=== PATIENT | female | born 1955 | race Caucasian/White ===

== ENCOUNTER 2017-04-23 09:58 | Day surgery (SDC) | payer BC ==
[~2017-04-23 09:58] MED LIST: Lactated Ringers 1,000 ML IV SCH; Lidocaine 1% with EPINEPHrine 1:100,000 20 ML MDV ONE; Lidocaine 1%/Sod Bicarbonate in NS 8.4% 1 ML Syringe PRN; Sodium Chloride 0.9% 10 ML Syringe FLUSH PRN
[2017-04-23] MEDS ORDERED: Bupivacaine 0.5%/EPINEPHrine 1:200,000 50 ML MDV ONE (09:59)
--- NOTE | 2017-04-23 10:24 | PCM.PREANE ---
Preanesthetic Assessment - Procedure Proposed Procedure: Laparoscopic Cholecystectomy - Anesthesia/Transfusion/Family Hx Anesthesia History: Prior Anesthesia Without Reaction Family History of Anesthesia Reaction: No Transfusion History: No Prior Transfusion(s) - Review of Systems General: No Symptoms Pulmonary: No Symptoms Cardiovascular: Palpitations (occasional papitations, holter monitor worn a couple months ago and " didnt find anything"), Other (HTN controlled with medications ) Gastrointestinal: No symptoms Neurological: No Symptoms Other: Reports: None, Diabetes (prediabetic ) - Physical Assessment NPO Status Date: 04/23/17 NPO Status Time: 02:00 Height: 1.57 m Weight: 73.255 kg ASA Class: 2 Mental Status: Alert & Oriented x3 Airway Class: Mallampati = 2 Dentition: Reports: Broken Tooth/Teeth (chipped front bottom 2 ) Thyro-Mental Finger Breadths: 3 Mouth Opening Finger Breadths: 3 ROM/Head Extension: Full Lungs: Clear to auscultation, Normal respiratory effort Cardiovascular: Regular Rate, Regular Rhythm - Allergies Allergies/Adverse Reactions: Allergies Allergy/AdvReac Type Severity Reaction Status Date / Time Xbmzryp-[id number]-Kbp Reductase Allergy Cannot Verified 04/22/17 16:44 Inhibitor Remember vancomycin Allergy Cannot Verified 04/22/17 16:44 Remember - Blood Blood Available: No Product(s) Available: None - Anesthesia Plan Pre-Op Medication Ordered: None Beta Jan: Metoprolol Med Last Dose Date: 04/23/17 Med Last Dose Time: 08:00 - Acknowledgements Anesthesia Type Planned: General Anesthesia Pt an Appropriate Candidate for the Planned Anesthesia: Yes Alternatives and Risks of Anesthesia Discussed w Pt/Guardian: Yes Pt/Guardian Understands and Agrees with Anesthesia Plan: Yes PreAnesthesia Questionnaire HEENT History: Reports: Impaired Vision Cardiovascular History: Reports: Hypertension, Other (See Below) Other Cardiovascular History: palpitations Respiratory History: Reports: None Gastrointestinal History: Reports: Colon Polyp, Diverticulosis, Gastritis, Other (See Below) Other Gastrointestinal History: C diff, adenatamous colon polyp, diverticulitis , gallbladder polyp 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 OB/BYN History: pelvic pain Neurological History: Reports: None Psychiatric History: Reports: Other (See Below) Other Psychiatric History: fatigue Endocrine/Metabolic History: Reports: Diabetes, Type II, Vitamin D Deficiency Hematologic History: Reports: Other (See Below) Other Hematologic History: hyponatremia Immunologic History: Reports: None Oncologic (Cancer) History: Reports: None Dermatologic History: Reports: Other (See Below) Other Dermatologic History: rash - Past Surgical History Head Surgeries/Procedures: Reports: None HEENT Surgical History: Reports: Other (See Below) Other HEENT Surgeries/Procedures: wears glasses GI Surgical History: Reports: Colonoscopy, EGD Female Surgical History: Reports: Section, Tubal Ligation - SUBSTANCE USE Smoking Status *Q: Never Smoker Days Per Week of Alcohol Use: 3 Number of Drinks Per Day: 4 Total Drinks Per Week: 12 Recreational Drug Use History: No - HOME MEDS Home Medications: Home Meds Cinnamon Bark [Cinnamon] 500 mg PO DAILY 04/22/17 [History] FA/Lycopene/Lut/MV,Ca,Iron,Min [Centrum] 1 tab PO DAILY 04/22/17 [History] Flaxseed Oil 1,000 mg PO DAILY 04/22/17 [History] L. Acidophilus/Pectin, Baltic [Acidophilus Probiotic] 1 cap PO DAILY 04/22/17 [ History] Metoprolol Succinate [Metoprolol Succinate] 50 mg PO DAILY 04/22/17 [History] Metoprolol Succinate [Metoprolol Succinate] 100 mg PO DAILY 04/22/17 [History] [place]-3/DHA/Epa/Fish Oil [[place]-3 Fish Oil 1,000 MG Sfgl] 1,000 mg PO DAILY 07/01 [History] amLODIPine Besylate [Amlodipine Besylate] 10 mg PO DAILY 04/22/17 [History] - CURRENT (IN HOUSE) MEDS Current Meds: Current Medications Lactated Ringer's (Ringers, Lactated) 1,000 mls @ 125 mls/hr IV ASDIRECTED JOSÉ LUIS Stop: 04/23/17 23:00 Lidocaine/Sodium Bicarbonate (Buffered Lidocaine 1% In Ns 8.4%) 0.25 ml .XX ONETIME PRN PRN Reason: Prior to IV Start Stop: 04/23/17 18:00 Sodium Chloride (Saline Flush) 10 ml FLUSH ASDIRECTED PRN PRN Reason: Keep Vein Open Stop: 04/23/17 18:00 Discontinued Medications Bupivacaine HCl/Epinephrine Bitart (Marcaine 0.5%/Epinephrine 1:200,000) Confirm Administered Dose 50 ml .ROUTE .STK-MED ONE Stop: 04/23/17 10:00 Lidocaine/Epinephrine (Xylocaine 1% With Epinephrine 1:100,000) Confirm Administered Dose 20 ml .ROUTE .[facility] Stop: 04/23/17 09:59
[2017-04-23] MEDS ORDERED: Scopolamine 1.5 MG Transdermal Patch TRDERM ONE (10:31)
[2017-04-23] MEDS ORDERED: fentaNYL 250 MCG/5 ML SDV ONE (10:42)
[2017-04-23] MEDS ORDERED: Midazolam 1 MG/ML 2 ML SDV ONE (10:42)
[2017-04-23] MEDS ORDERED: Propofol 200 MG/20 ML SDV ONE (10:42)
[2017-04-23] MEDS ORDERED: Ondansetron 4 MG/2 ML SDV ONE (10:44)
[2017-04-23] MEDS ORDERED: Lidocaine 1% 4 ML ONE (10:44)
[2017-04-23] MEDS ORDERED: Rocuronium 50 MG/5 ML Vial ONE (10:44)
[2017-04-23] MEDS ORDERED: Dexamethasone 4 MG/ML SDV ONE (10:44)
[2017-04-23] MEDS ORDERED: ePHEDrine/Normal Saline 25 MG/5 ML Syringe ONE (11:12)
[2017-04-23] MEDS ORDERED: Lactated Ringers 1,000 ML ONE (11:30)
[2017-04-23] MEDS ORDERED: Ketorolac 30 MG/ML SDV ONE (11:37)
[2017-04-23] MEDS ORDERED: fentaNYL 100 MCG/2 ML SDV IVPUSH PRN (11:56)
[2017-04-23] MEDS ORDERED: Ondansetron 4 MG/2 ML SDV IVPUSH PRN (11:56)
--- NOTE | 2017-04-23 11:56 | PCM.POSTAN ---
POST ANESTHESIA ASSESSMENT - MENTAL STATUS Mental Status: alert, oriented - VITAL SIGNS Pulse Rate: 96 SaO2: 100 Resp Rate: 16 Blood Pressure: 141/75 Temperature: 36.1 C - RESPIRATORY Respiratory Status: respiratory rate WNL, airway patent, O2 saturation stable, supplemental oxygen - CARDIOVASCULAR CV Status: pulse rate WNL, blood pressure stable - GASTROINTESTINAL GI Status: no symptoms - PAIN Pain Score: 2 (pain medicine offered) - POST OP HYDRATION Hydration Status: adequate & stable
--- NOTE | 2017-04-23 12:05 | PCM.OPNOTE ---
- General Post-Op/Procedure Note Date of Surgery/Procedure: 04/23/17 Operative Procedure(s): Laparoscopic cholecystectomy Pre Op Diagnosis: Enlarging gallbladder polyp Post-Op Diagnosis: 1. Enlarging gallbladder polyp. 2. Fatty liver Anesthesia Technique: General ET tube, Local (30 mL) Primary Surgeon: Machelle Cervantes Anesthesia Provider: Evelia Horne Pathology: Gallbladder Fluid Replacement, Intraop: 1,500 (mL crystalloid) EBL in mLs: 5 Complications: None Condition: Good Free Text/Narrative:: INDICATION FOR PROCEDURE: The patient is a 61-year-old woman who is a patient of Dr. Tena Raymond with a history of gallbladder polyp. This was first measured at 7 mm and at one year follow up ultrasound measured 12mm. I discussed with the patient performing a laparoscopic cholecystectomy and associated risks of the procedure. The patient found these risks acceptable and agreed to proceed. DESCRIPTION OF PROCEDURE: The patient was taken to the operating room and placed in the supine position. Sequential compressive devices were placed on the bilateral lower extremities. After induction of general endotracheal anesthesia, the abdomen was prepped and draped in the usual sterile fashion. Preoperative antibiotics were not given due to the patient's history of C. difficile and low risk of surgical site infection from cholecystectomy. This was discussed with her preoperatively. A supraumbilical curvilinear incision was made using a scalpel. This was deepened down through the subcutaneous tissues to the anterior abdominal wall fascia which was elevated and incised. The abdomen was bluntly entered using a hemostat. The 0 Vicryl stay suture was placed. A Nash cannula was introduced into the abdomen and the abdomen wasinsufflated to 15 mm of mercury. The abdomen was then surveyed. There were no inguinal hernias, visualized portions of the stomach, large and small intestine were unremarkable. The liver did have a fatty appearance. Attention was turned then to the patient's gallbladder which appeared unremarkable. Two additional 5 mm trocars were then placed under direct visualization after first injecting local anesthetic, one in the epigastrium and one in the right subcostal margin. The gallbladder fundus was elevated, and the triangle of Calot was dissected. The critical view of safety was obtained. The cystic duct and the cystic artery were triply clipped and transected using Endo Tirso. Due to the redundancy of the fatty liver and redundancy around the triangle of Calot, it was actually easier to take the gallbladder in a top down fashion. The gallbladder was taken in a top down fashion using electrocautery. There was a very small amount of bile spillage. The gallbladder was placed into an EndoCatch bag. The abdomen was irrigated and suctioned until the effluent was clear. The liver bed was reinspected for hemostasis. The 5 mm trocars were removed with no evidence of bleeding. The Nash cannula and gallbladder within the EndoCatch bag were then removed. The patient's fascial incision was closed using an 0 Vicryl [id number] suture times two. Additional local anesthetic was injected jaci-incisionally. The incisions were then closed using subcuticular 4-0 Monocryl suture. Dermabond was placed over the patient's skin incisions. The patient was then awakened from anesthesia, extubated, and transferred to the recovery room in stable condition having tolerated the procedure well. Sponge and instrument counts were reported as correct at the end of the case. POSTOPERATIVE PLAN: The patient will be discharged home today. Prescriptions for Percocet 5/325mg were given in addition to Zofran. They will follow up in 2 weeks for a post- operative check. They are not lift over 20 pounds for the next 4 weeks. They are to call the office with any questions or concerns. I discussed my intraoperative findings and discharge instructions with the patient's .
[2017-04-23] MEDS ORDERED: HYDROmorphone 0.5 MG/0.5 ML Syringe IVPUSH PRN (12:15)
[2017-04-23] MEDS ORDERED: Acetaminophen/oxyCODONE 325-5 MG Tab PO PRN (12:54)
[2017-04-23 13:09] VITALS: BP 126/72
== END 2017-04-23 13:35 | disposition home or self-care (01) ==
LOC: JD.SDS 09:58
PROVIDERS: ATTEND Surgery
PROC: 0FT44ZZ Resection of Gallbladder, Percutaneous Endoscopic Approach (ICD-10-PCS; principal; 2017-04-23)
DX: K82.4 Cholesterolosis of gallbladder (principal); K76.0 Fatty (change of) liver, not elsewhere classified; E11.9 Type 2 diabetes mellitus without complications; E78.00 Pure hypercholesterolemia, unspecified; I10 Essential (primary) hypertension; E87.1 Hypo-osmolality and hyponatremia; E55.9 Vitamin D deficiency, unspecified
CPT/HCPCS: 47562; 88304; A9270; J1100; J1885; J2250; J2405; J3010; J7050; J7120; 00790; J2704